=== PATIENT | male | born 1980 | race Caucasian/White ===

== ENCOUNTER → 2022-12-01 | Outpatient (CLI) | payer OTHER ==
[2022-12-01 12:53] LABS: CHOLESTEROL 166 mg/dL (<200); HDL CHOLESTEROL 42 mg/dL (29-71); LDL DIRECT 109 mg/dL (0-99); TRIGLYCERIDES 119 mg/dL (30-200)
== END | disposition home or self-care (01) ==
LOC: LAB 10:08
PROVIDERS: ATTEND Student in an Organized Health Care Education/Training Program
DX: E78.1 Pure hyperglyceridemia (principal)
CPT/HCPCS: 36415; 80061

== ENCOUNTER → 2023-12-10 | Outpatient (CLI) | payer OTHER | END | disposition home or self-care (01) | LOC: RAH 11:06 | PROVIDERS: ATTEND Student in an Organized Health Care Education/Training Program | DX: R06.09 Other forms of dyspnea (principal); R00.2 Palpitations | CPT/HCPCS: 93306 ==